=== PATIENT | female | born 1940 | race Caucasian/White ===

== ENCOUNTER 2016-05-18 14:46 | Outpatient (CLI) | payer MEDICARE, OTHER ==
[2014-12-17 18:23] VITALS: BP 130/68
== END 2016-05-18 14:47 ==
LOC: POD 14:46
PROVIDERS: ATTEND Podiatrist
DX: B35.1 Tinea unguium (principal); M79.674 Pain in right toe(s); M79.675 Pain in left toe(s)
CPT/HCPCS: 11721; G0463

== ENCOUNTER 2016-06-21 10:11 | Outpatient (CLI) | payer MEDICARE, OTHER ==
[2014-12-17 18:23] VITALS: BP 130/68
[2016-06-21 10:54] LABS: eGFR (African) > 60; eGFR (Non-African) 42
== END 2016-06-21 10:12 ==
LOC: LAB 10:11
PROVIDERS: ATTEND Clinical Nurse Specialist Medical-Surgical
DX: M81.0 Age-related osteoporosis without current pathological fracture (principal); Z87.310 Personal history of (healed) osteoporosis fracture; R26.9 Unspecified abnormalities of gait and mobility; E83.52 Hypercalcemia; E55.9 Vitamin D deficiency, unspecified; E21.3 Hyperparathyroidism, unspecified
CPT/HCPCS: 36415; 80053; 82306

== ENCOUNTER 2016-08-31 12:50 | Outpatient (CLI) | payer MEDICARE, OTHER ==
[2014-12-17 18:23] VITALS: BP 130/68
== END 2016-08-31 12:52 ==
LOC: POD 12:50
PROVIDERS: ATTEND Podiatrist
DX: B35.1 Tinea unguium (principal); M79.674 Pain in right toe(s); M79.675 Pain in left toe(s)
CPT/HCPCS: 11721; G0463

== ENCOUNTER 2016-12-05 10:08 | Outpatient (CLI) | payer MEDICARE, OTHER ==
[2014-12-17 18:23] VITALS: BP 130/68
[2016-12-05 10:53] LABS: eGFR (African) > 60; eGFR (Non-African) > 60
== END 2016-12-05 10:10 ==
LOC: LAB 10:08
PROVIDERS: ATTEND Clinical Nurse Specialist Medical-Surgical
DX: M81.0 Age-related osteoporosis without current pathological fracture (principal); Z87.310 Personal history of (healed) osteoporosis fracture; R26.9 Unspecified abnormalities of gait and mobility; E83.52 Hypercalcemia; E55.9 Vitamin D deficiency, unspecified; E21.3 Hyperparathyroidism, unspecified
CPT/HCPCS: 36415; 80053; 82306; 83970

== ENCOUNTER 2016-12-11 15:04 | Outpatient (CLI) | payer MEDICARE, OTHER ==
[2014-12-17 18:23] VITALS: BP 130/68
== END 2016-12-11 15:05 ==
LOC: POD 15:04
PROVIDERS: ATTEND Podiatrist
DX: B35.1 Tinea unguium (principal); M79.674 Pain in right toe(s); M79.675 Pain in left toe(s)
CPT/HCPCS: 11721; G0463

== ENCOUNTER → 2017-01-25 | Outpatient (CLI) | payer MEDICARE, OTHER ==
[2014-12-17 18:23] VITALS: BP 130/68
== END ==
LOC: LAB 09:50
PROVIDERS: ATTEND Clinical Nurse Specialist Medical-Surgical
DX: M81.0 Age-related osteoporosis without current pathological fracture (principal); Z87.310 Personal history of (healed) osteoporosis fracture; R26.9 Unspecified abnormalities of gait and mobility; E83.52 Hypercalcemia
CPT/HCPCS: 36415; 82310; 82330

== ENCOUNTER 2017-04-19 12:36 | Outpatient (CLI) | payer MEDICARE, OTHER ==
[2014-12-17 18:23] VITALS: BP 130/68
== END 2017-04-19 12:37 ==
LOC: POD 12:36
PROVIDERS: ATTEND Podiatrist
DX: B35.1 Tinea unguium (principal); M79.674 Pain in right toe(s); M79.675 Pain in left toe(s)
CPT/HCPCS: 11721; G0463

== ENCOUNTER 2017-06-17 15:16 | Outpatient (CLI) | payer MEDICARE, OTHER ==
[2014-12-17 18:23] VITALS: BP 130/68
[2017-06-17 15:41] LABS: BASOPHILS % 0.6 (0.0-1.5); MEAN CORPUSCULAR VOLUME 98.3 fl (80.0-100.0); MONOCYTES % 4.1 % (0.0-11.0); NEUTROPHILS # 7.9 # k/uL (1.4-7.7)
[2017-06-17 16:13] LABS: eGFR (African) > 60; eGFR (Non-African) 39
== END 2017-06-17 15:18 ==
LOC: LAB 15:16
PROVIDERS: ATTEND Family Medicine
DX: I10 Essential (primary) hypertension (principal)
CPT/HCPCS: 36415; 80053; 85025

== ENCOUNTER 2017-08-13 08:18 | Outpatient (CLI) | payer MEDICARE, OTHER ==
[2014-12-17 18:23] VITALS: BP 130/68
== END 2017-08-13 08:20 ==
LOC: LAB 08:18
PROVIDERS: ATTEND Clinical Nurse Specialist Medical-Surgical
DX: M81.0 Age-related osteoporosis without current pathological fracture (principal); Z87.310 Personal history of (healed) osteoporosis fracture; R26.9 Unspecified abnormalities of gait and mobility; E83.52 Hypercalcemia; E55.9 Vitamin D deficiency, unspecified; E21.3 Hyperparathyroidism, unspecified
CPT/HCPCS: 36415; 82306; 82310

== ENCOUNTER 2017-08-16 14:10 | Outpatient (CLI) | payer MEDICARE, OTHER ==
[2014-12-17 18:23] VITALS: BP 130/68
== END 2017-08-16 14:11 ==
LOC: POD 14:10
PROVIDERS: ATTEND Podiatrist
DX: B35.1 Tinea unguium (principal); M79.674 Pain in right toe(s); M79.675 Pain in left toe(s)
CPT/HCPCS: 11721; G0463

== ENCOUNTER 2017-11-15 13:34 | Outpatient (CLI) | payer MEDICARE, OTHER ==
[2014-12-17 18:23] VITALS: BP 130/68
== END 2017-11-15 13:35 ==
LOC: POD 13:34
PROVIDERS: ATTEND Podiatrist
DX: B35.1 Tinea unguium (principal); M79.674 Pain in right toe(s); M79.675 Pain in left toe(s)
CPT/HCPCS: 11721; G0463

== ENCOUNTER 2018-05-13 11:48 | Outpatient (CLI) | payer MEDICARE, OTHER ==
[2014-12-17 18:23] VITALS: BP 130/68
== END 2018-05-13 11:55 ==
LOC: LAB 11:48
PROVIDERS: ATTEND Clinical Nurse Specialist Medical-Surgical
DX: M18.0 Bilateral primary osteoarthritis of first carpometacarpal joints (principal); R26.9 Unspecified abnormalities of gait and mobility; E55.9 Vitamin D deficiency, unspecified; E83.52 Hypercalcemia; Z87.310 Personal history of (healed) osteoporosis fracture
CPT/HCPCS: 36415; 82306; 82310

== ENCOUNTER 2018-07-15 13:55 | Outpatient (CLI) | payer MEDICARE, OTHER ==
[2014-12-17 18:23] VITALS: BP 130/68
[2018-07-15 14:55] LABS: eGFR (Non-African) > 60
== END 2018-07-15 13:59 | disposition home or self-care (01) ==
LOC: LAB 13:55
PROVIDERS: ATTEND Podiatrist Foot & Ankle Surgery
DX: Z01.812 Encounter for preprocedural laboratory examination (principal); M10.9 Gout, unspecified
CPT/HCPCS: 36415; 80048; 84550

== ENCOUNTER 2018-09-15 07:00 | Outpatient (CLI) | payer MEDICARE, OTHER ==
[2014-12-17 18:23] VITALS: BP 130/68
== END 2018-09-15 07:05 | disposition home or self-care (01) ==
LOC: LABRHC 07:00
PROVIDERS: ATTEND Family Medicine
DX: Z11.2 Encounter for screening for other bacterial diseases (principal)
CPT/HCPCS: 87086

== ENCOUNTER 2018-11-11 13:14 | Outpatient (CLI) | payer MEDICARE, OTHER ==
[2014-12-17 18:23] VITALS: BP 130/68
== END 2018-11-11 13:16 ==
LOC: LAB 13:14
PROVIDERS: ATTEND Clinical Nurse Specialist Medical-Surgical
DX: M81.0 Age-related osteoporosis without current pathological fracture (principal); R26.9 Unspecified abnormalities of gait and mobility; E55.9 Vitamin D deficiency, unspecified; E21.3 Hyperparathyroidism, unspecified; Z87.310 Personal history of (healed) osteoporosis fracture
CPT/HCPCS: 36415; 82306; 82310